=== PATIENT | male | born 1980 | race Caucasian/White ===

== ENCOUNTER 2018-04-18 14:27 | Observation (INO) ==
--- NOTE | 2018-04-18 15:31 | Emergency Department Note ---
Disposition Clinical Impression: Cholecystitis, acute Abdominal pain Qualifiers: Abdominal location: right upper quadrant Qualified Code(s): R10.11 - Right upper quadrant pain Disposition: Home, Self-Care General Adult HPI - General Chief complaint: ED Abdominal Pain Stated complaint: RUQ PAIN/'GALLBLADDER PROBLEMS' Time Seen by Provider: 04/18/18 15:07 Source: patient Limitations: no limitations Nursing Notes Reviewed: Yes Vital Signs Reviewed: Yes - History of Present Illness HPI Narrative: 37M with PMHx HTN presents with 2 weeks of RUQ pain. He went to [facility] 2 weeks ago and reports that they did a CT abd/pelvis and blood work-up on him, which were all unremarkable. Was given Zofran, dilaudid and discharged. Pain worsened over the last 2 weeks and patient decided to come to [facility]. Pain is constant, sharp, worse with movement, better with rest. 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 He had similar episode in November 04, 2018, and diagnosed with gallstones, treated symptomatically. Patient had another episode in December, did not pursue medical treatment. 2 weeks ago, he experienced more severe RUQ and went to [facility], where he obtained abodominal CT, blood work. Patient states that imaging and blood work were unremarkable, he received dilaudid and zofran, and was discharged home. However, RUQ pain worsened over the last 2 weeks, he decided to go to urgent care today and was recommended to come to [facility] for further work-up. Patient reports nausea and decreased PO intake. Last meal last night. RUQ pain is worse with greasy food. Denies CP, SOB , cough, diarrhea, vomiting, fever, chills. Pain is "not that bad", but patient is a security police officer and RUQ is interfering with his work. He denies smoking, alcohol, or illicit drug use. No further acute complaints. Pt Subjective Complaint: RUQ pain Pain Scale: 4 - Related Data Home Medications Medication Instructions Recorded Confirmed Lisinopril [Zestril] 10 mg PO DAILY 04/18/18 04/18/18 Pantoprazole Sodium 40 mg PO DAILY 04/18/18 04/18/18 Allergies Allergy/AdvReac Type Severity Reaction Status Date / Time codeine AdvReac See Verified 04/18/18 18:20 Comments Constitutional: Reports: as per HPI Past Medical History - Past Medical History Medical history: Reports: hypertension, other Psychiatric history: Reports: no psych history - Social History Smoking Status: Never smoker Smokeless Tobacco Status: No Alcohol use: Reports: none Drug use: Reports: none Physical Exam - General Limitations: no limitations General appearance: alert, in no apparent distress - Head Head exam: atraumatic, normocephalic, normal inspection - Eye Eye exam: Present: normal appearance, PERRL, EOMI - Expanded Eye Exam Pupils: Left: reactive - ENT ENT exam: normal exam, normal oropharynx, mucous membranes moist - Expanded ENT Exam External ear exam: Present: normal external inspection Mouth exam: Present: normal external inspection Teeth exam: Present: normal inspection Throat exam: Present: normal inspection - Neck Neck exam: Present: normal inspection, full ROM, trachea midline - Chest Chest inspection: Present: normal inspection, symmetric chest wall rise - Respiratory Respiratory exam: Present: normal lung sounds bilaterally - Cardiovascular Cardiovascular exam: Present: regular rate, normal rhythm, normal heart sounds - Abdominal Exam Abdominal exam: Present: soft, diminished bowel sounds, Davidson's sign. Absent: tenderness, distention, guarding, rebound, rigidity, Rovsing's sign, tenderness at McBurney's Point Abdominal tenderness: Present: RUQ, moderate - Extremities Exam Extremities exam: Present: normal inspection, full ROM. Absent: tenderness, pedal edema - Expanded Upper Extremity Exam Shoulder exam: Present: normal inspection, full ROM Arm exam: Present: normal inspection, full ROM Elbow exam: Present: normal inspection, full ROM Forearm/Wrist exam: Present: normal inspection, full ROM Hand exam: Present: normal inspection, full ROM Vascular exam: Normal: capillary refill, radial pulse - Expanded Lower Extremity Exam Hip/Pelvis exam: Present: normal inspection, full ROM Upper leg exam: Present: normal inspection, full ROM Knee exam: Present: normal inspection, full ROM Lower leg exam: Present: normal inspection, full ROM Ankle exam: Present: normal inspection, full ROM Foot/toe exam: Present: normal inspection, full ROM Neurovascular/Tendon exam: Absent: motor deficit, sensory deficit, tendon deficit - Back Exam Back exam: Present: normal inspection, full ROM. Absent: tenderness - Neurological Exam Neurological exam: Present: alert, oriented X3 - Expanded Neurological Exam Patient oriented to: Present: person, place, time Coma Scale Eye Opening: Spontaneous Coma Scale Motor Response: Obeys Commands Coma Scale Verbal Response: Oriented Coma Scale Total: 15 - Psychiatric Psychiatric exam: Present: normal affect, normal mood - Skin Skin exam: Present: warm, dry, intact, normal color Course Course Narrative: Patient is currently stable. His presentation of post-prandial worsening RUQ, nausea, +Davidson's sign correlates with acute cholecystitis, although he is afrebile. Obtain CBC, hepatic panel, BMP, RUQ ultrasound to rule out cholecystitis. - Reevaluation(s) Reevaluation #1: Holzher work-up obtained. Limited ultrasound demonstrated cholelithiasis without evidence of acute cholecystitis. negative CXR. CT abd/pelvis with contrast shows several tiny low-attenuation lesions left kidney. Probably due to benign cysts. Small ringlike sclerotic area involving left iliac bone. likely benign. Time: 16:00 Reevaluation #2: US gall bladder IMPRESSION: Cholelithiasis, including a gallstone within the gallbladder neck. There is mild wall thickening of 4 mm and possible trace pericholecystic fluid. Negative sonographic Davidson sign. Overall findings could represent mild cholecystitis in the proper clinical setting. Hepatic steatosis. Time: 17:30 Reevaluation #3: Patient expresses that he would like his gallbladder taken out leonie. Requests for us to consult surgery for possible cholecystectomy this weekend. Consulted Dr. Franco, who plans to assess patient later tonight. Time: 18:00 Additional Reevaluation(s): Dr. Franco has assessed patient and agrees to admit for surgery. Vital Signs Temperature 97.9 F 04/18/18 14:30 Pulse Rate 84 04/18/18 14:30 Respiratory Rate 16 04/18/18 14:30 Blood Pressure 126/75 04/18/18 14:30 O2 Sat by Pulse Oximetry 95 04/18/18 14:30 Temperature 97.9 F 04/18/18 15:35 Pulse Rate 84 04/18/18 15:35 Respiratory Rate 16 04/18/18 15:35 Blood Pressure 126/75 04/18/18 15:35 O2 Sat by Pulse Oximetry 95 04/18/18 15:35 Oxygen Delivery Oxygen Delivery Room Air Medical Decision Making - Lab Data Result diagrams: 04/18/18 15:14 04/18/18 15:14 Lab Results 04/18/18 04/18/18 04/18/18 Range/Units 15:14 15:14 15:32 WBC 14.0 H (4.3-11.1) K/mcL RBC 4.92 (4.19-5.50) M/mcL Hgb 14.9 (12.9-16.9) g/dL Hct 42.9 (37.5-50.1) % MCV 87.2 (83.0-100.0) fL MCH 30.3 (28.0-33.3) pg MCHC 34.7 (31.6-35.5) g/dL RDW 12.8 (11.5-14.5) % Plt Count 247 (140-400) K/mcL MPV 9.1 L (9.4-12.4) fL Sodium 136 (136-145) mEq/L Potassium 4.4 (3.5-5.1) mEq/L Chloride 104 (98-107) mEq/L Carbon Dioxide 24 (23-29) mEq/L BUN 13 (6-20) mg/dL Creatinine 1.01 (0.70-1.30) mg/dL Est GFR ( Amer) > 60 (> 60) Est GFR (Non-Af Amer) > 60 (> 60) BUN/Creatinine Ratio 13 (6-26) Glucose 138 H (70-105) mg/dL Calculated Osmolality 284 (280-300) Calcium 9.8 (8.6-10.3) mg/dL Total Bilirubin 0.7 (0.3-1.0) mg/dL Direct Bilirubin 0.1 (0.0-0.2) mg/dL Indirect Bilirubin 0.6 (0.0-1.2) mg/dL AST 18 (13-39) Units/L ALT 28 (7-52) Units/L Alkaline Phosphatase 84 (34-104) Units/L Serum Total Protein 7.7 (6.4-8.9) g/dL Albumin 4.8 (3.5-5.7) g/dL Globulin 2.9 (2.4-3.5) g/dL Albumin/Globulin Ratio 1.7 (1.1-2.2) Lipase 18 (11-82) Units/L Urine Color Yellow (Yellow) Urine Clarity Clear (Clear) Urine pH >=9.0 H (5.0-8.0) pH Units Ur Specific [place] 1.015 (1.010-1.025) Urine Protein 100 H (Neg-Trace) mg/dL Urine Glucose (UA) Normal (Normal) mg/dL Urine Ketones Trace H (Negative) mg/dL Urine Blood Negative (Negative) Urine Nitrite Negative (Negative) Urine Bilirubin Small H (Negative) Urine Urobilinogen Normal (Normal) mg/dL Ur Leukocyte Esterase Negative (Negative) Ur Squamous Epith Cells Few (None-Few) per lpf Urine Mucus Many H (Few)
[2018-04-18 15:34] LABS: Hematocrit 42.9 % (37.5-50.1); Hemoglobin 14.9 g/dL (12.9-16.9); Mean Corpuscular HGB Conc 34.7 g/dL (31.6-35.5); Mean Corpuscular Hemoglobin 30.3 pg (28.0-33.3); Mean Corpuscular Volume 87.2 fL (83.0-100.0); Mean Platelet Volume 9.1 fL (9.4-12.4); Platelet Count 247 K/mcL (140-400); Red Blood Count 4.92 M/mcL (4.19-5.50); Red Cell Distribution Width 12.8 % (11.5-14.5)
[2018-04-18 15:41] LABS: Bilirubin,Urine Small (Negative); Blood,Urine Negative (Negative); Clarity,Urine Clear (Clear); Color,Urine Yellow (Yellow); Glucose,Urine (UA) Normal (Normal); Ketones,Urine Trace mg/dL (Negative); Leukocyte Esterase,Urine Negative (Negative); Nitrite,Urine Negative (Negative); PH,Urine >=9.0 pH Units (5.0-8.0); Protein,Urine 100 mg/dL (Neg-Trace); Specific Gravity,Urine 1.015 (1.010-1.025); Urobilinogen,Urine Normal (Normal)
[2018-04-18 15:49] LABS: Mucus,Urine Many (Few); Squamous Epithelial Cell,Urine Few per lpf (None-Few)
--- NOTE | 2018-04-18 15:50 | Emergency Department Note ---
Disposition Clinical Impression: Abdominal pain Qualifiers: Abdominal location: right upper quadrant Qualified Code(s): R10.11 - Right upper quadrant pain Disposition: Still a Patient Forms: ED Satisfaction Letter, Work/School Release General Adult HPI - General Chief complaint: ED Abdominal Pain Stated complaint: RUQ PAIN/'GALLBLADDER PROBLEMS' Time Seen by Provider: 04/18/18 15:07 Source: patient, family Limitations: no limitations - History of Present Illness Pain Scale: 6 - Related Data Home Medications Medication Instructions Recorded Confirmed Lisinopril [Zestril] 10 mg PO DAILY 12/05/16 12/05/16 Previous Rx's Medication Instructions Recorded Clindamycin [Cleocin] 150 mg PO Q6HR #7 capsule 12/05/16 OxyCODONE Immed Rel [Roxicodone 5 5 - 10 mg PO Q6HR PRN #30 tablet 12/05/16 MG] Hyoscyamine SL [Levsin SL] 0.125 mg SL TID PRN #14 tab.subl 11/05/17 Ibuprofen 400 mg PO Q6HR PRN #20 tablet 11/05/17 Ondansetron ODT [Zofran ODT] 4 mg SL Q6HR PRN #10 tab.rapdis 11/05/17 Allergies Allergy/AdvReac Type Severity Reaction Status Date / Time codeine AdvReac See Verified 11/05/17 04:38 Comments Past Medical History - Past Medical History Medical history: Reports: hypertension, other Psychiatric history: Reports: no psych history - Social History Smoking Status: Never smoker Smokeless Tobacco Status: No Alcohol use: Reports: none Drug use: Reports: none Physical Exam - General Limitations: no limitations General appearance: alert, in no apparent distress Course - Reevaluation(s) Reevaluation #1: Attestation note I did independently examine and verified the physical examination findings evaluation workup and disposition of this patient. We had independent face-to- face examination and discussion. The patient was seen with the emergency medicine resident Dr. Adelso Oates I examined this patient and my medical decision-making was reviewed with the Resident Physician/AT RISK SPECIALIST/PA. I agree with the documented findings, disposition and treatment plan as described except to the extent set forth below. 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 Patient was seen at [facility] 2 weeks ago had a negative CT and normal lab work. Went to urgent care got IM Toradol and was sent here further evaluation patient does report quadrant tenderness guarding but no rebound. Patient will be getting a ultrasound of the lower quadrant and LFTs. Disposition pending. Patient was offered but declined analgesics. Time: 15:49 Vital Signs Temperature 97.9 F 04/18/18 14:30 Pulse Rate 84 04/18/18 14:30 Respiratory Rate 16 04/18/18 14:30 Blood Pressure 126/75 04/18/18 14:30 O2 Sat by Pulse Oximetry 95 04/18/18 14:30 Temperature 97.9 F 04/18/18 15:35 Pulse Rate 84 04/18/18 15:35 Respiratory Rate 16 04/18/18 15:35 Blood Pressure 126/75 04/18/18 15:35 O2 Sat by Pulse Oximetry 95 04/18/18 15:35 Oxygen Delivery Oxygen Delivery Room Air Medical Decision Making - Lab Data Result diagrams: 04/18/18 15:14 Lab Results 04/18/18 04/18/18 Range/Units 15:14 15:32 WBC 14.0 H (4.3-11.1) K/mcL RBC 4.92 (4.19-5.50) M/mcL Hgb 14.9 (12.9-16.9) g/dL Hct 42.9 (37.5-50.1) % MCV 87.2 (83.0-100.0) fL MCH 30.3 (28.0-33.3) pg MCHC 34.7 (31.6-35.5) g/dL RDW 12.8 (11.5-14.5) % Plt Count 247 (140-400) K/mcL MPV 9.1 L (9.4-12.4) fL Urine Color Yellow (Yellow) Urine Clarity Clear (Clear) Urine pH >=9.0 H (5.0-8.0) pH Units Ur Specific [place] 1.015 (1.010-1.025) Urine Protein 100 H (Neg-Trace) mg/dL Urine Glucose (UA) Normal (Normal) mg/dL Urine Ketones Trace H (Negative) mg/dL Urine Blood Negative (Negative) Urine Nitrite Negative (Negative) Urine Bilirubin Small H (Negative) Urine Urobilinogen Normal (Normal) mg/dL Ur Leukocyte Esterase Negative (Negative)
[2018-04-18 15:51] LABS: Alanine Aminotransferase 28 Units/L (7-52); Albumin 4.8 g/dL (3.5-5.7); Albumin/Globulin Ratio 1.7 (1.1-2.2); Alkaline Phosphatase 84 Units/L (34-104); Aspartate Amino Transferase 18 Units/L (13-39); BUN/Creatinine Ratio 13 (6-26); Bilirubin,Direct 0.1 mg/dL (0.0-0.2); Bilirubin,Indirect 0.6 mg/dL (0.0-1.2); Bilirubin,Total 0.7 mg/dL (0.3-1.0); Blood Urea Nitrogen 13 mg/dL (6-20); Calcium 9.8 mg/dL (8.6-10.3); Carbon Dioxide 24 mEq/L (23-29); Chloride 104 mEq/L (98-107); Globulin 2.9 g/dL (2.4-3.5); Glucose 138 mg/dL (70-105); Lipase 18 Units/L (11-82); Osmolality,Calculated 284 (280-300); Potassium 4.4 mEq/L (3.5-5.1); Sodium 136 mEq/L (136-145); Total Protein 7.7 g/dL (6.4-8.9); eGFR For African Americans > 60 (> 60); eGFR For Non-African Americans > 60 (> 60)
--- NOTE | 2018-04-18 18:27 | General Surg History&Physical ---
Date of Encounter: 04/18/18 Time of Encounter: 18:25 Assessment and Plan (1) Acute cholecystitis Current Visit: Yes Status: Acute The assessment and plan as outlined above was discussed with the patient and/or family members who expressed understanding and agreement. All questions were answered. I splayed to the patient that I personally reviewed the laboratory studies as well as a gallbladder ultrasound report and study. He does have evidence of acute cholecystitis and I think it would be appropriate to admit him to the hospital, start IV fluids and IV antibiotics, and reassess him in the morning to determine whether or not it would be appropriate to proceed with a laparoscopic cholecystectomy. The patient agrees with the above History of Present Illness Chief complaint: Right upper abdominal pain HPI: Mr. Mei is a 37 year old male with a past history significant for hypertension who states that Saturday of this week he started having right upper quadrant abdominal pain felt like a punch to the side. The pain has been progressively worse and because of the worsening symptoms he presented himself to the [facility] today for further evaluation. He states that last December he started having episodic abdominal pain that was in the upright abdominal/epigastric region that wrapped around his abdomen in a bandlike fashion radiated to the back. He had multiple episodes and the symptoms will last for about 2-3 hours. He states that it felt like he had the "wind knocked out of him" when he had the pain. 2 weeks ago he had worsening symptoms that required him to go to [facility] and Protonix. He states that the Protonix was given an he started to cover that the pain then started to migrate down to the epigastric area and to the right upper quadrant region and became the type pain that is currently experiencing. He did have previous episodes of nausea vomiting but no current nausea or vomiting. He states that he has had diarrhea since early part of this week. No rectal bleeding is noted. Past Med Surg Social Fam HX - Past Medical History Medical history: hypertension, other Additional medical history: GALLSTONES Psychiatric history: no psych history - Past Surgical History Surgical History: other (Left shoulder surgery) - Social History Smoking Status: Never smoker Smokeless Tobacco Status: No Alcohol use: none Drug use: none Medications and Allergies Lisinopril [Zestril] 10 mg PO DAILY 04/18/18 [History] Pantoprazole Sodium 40 mg PO DAILY 04/18/18 [History] 3 Allergy/AdvReac Type Severity Reaction Status Date / Time codeine AdvReac See Verified 04/18/18 18:20 Comments Review of Systems All systems PM: reviewed and no additional remarkable complaints except as stated All systems PM: The remainder of the systems were reviewed and are negative General Surgery Exam Initial Vital Signs Temp Pulse Resp BP Pulse Ox 97.9 F 84 16 126/75 95 04/18/18 14:30 04/18/18 14:30 04/18/18 14:30 04/18/18 14:30 04/18/18 14:30 - General physical appearance well nourished, no distress - Respiratory normal expansion, normal respiratory effort, clear to auscultation - Cardiovascular Cardiovascular exam: Present: RRR, no murmurs/rubs/gallops - Abdomen Abdomen general surgery: Present: bowel sounds present, soft, tender (Right upper abdominal pain to palpation. Epigastric pain) - Neurologic Present: CN 2-12 grossly intact - Musculoskeletal Present: other (No clubbing, cyanosis, or edema) - Psychiatric Psychiatric general surgery: Present: A&Ox3, oriented to person, oriented to place, oriented to time Results - Labs 04/18/18 15:14 04/18/18 15:14 Abnormal lab results WBC 14.0 K/mcL (4.3-11.1) H 04/18/18 15:14 MPV 9.1 fL (9.4-12.4) L 04/18/18 15:14 Glucose 138 mg/dL (70-105) H 04/18/18 15:14 Urine pH >=9.0 pH Units (5.0-8.0) H 04/18/18 15:32 Urine Protein 100 mg/dL (Neg-Trace) H 04/18/18 15:32 Urine Ketones Trace mg/dL (Negative) H 04/18/18 15:32 Urine Bilirubin Small (Negative) H 04/18/18 15:32 Urine Mucus Many (Few) H 04/18/18 15:32 All other labs normal. - Imaging US - abdomen: report reviewed, image reviewed (Evidence of trace fluid around the gallbladder with signs of cholecystitis and cholelithiasis.)
[2018-04-18] MEDS ORDERED: *HR* OxyCODONE/APAP 7.5/325 TABLET PO PRN (19:04)
[2018-04-18] MEDS: 0.9 % Sodium Chloride 1,000 ML IVC SCH (20:05)
[2018-04-18] MEDS: Piperacillin/Tazobactam 3.375 GM in 0.9 % Sodium Chloride Mini Bag 100 ML IVPB SCH (23:36)
[2018-04-18] MEDS: Ketorolac 30 MG/ML VIAL IVP SCH (23:37)
[2018-04-19] MEDS ORDERED: Ketorolac 30 MG/ML VIAL IM SCH
[2018-04-19] MEDS: Ketorolac 30 MG/ML VIAL IVP SCH ×2 (05:23→13:15)
[2018-04-19 06:19] LABS: Basophils % 0.1 %; Hematocrit 40.2 % (37.5-50.1); Hemoglobin 13.9 g/dL (12.9-16.9); Immature Granulocytes % 0.5 % (0-4); Lymphocytes % 6.6 %; Mean Corpuscular HGB Conc 34.6 g/dL (31.6-35.5); Mean Corpuscular Hemoglobin 30.4 pg (28.0-33.3); Mean Platelet Volume 8.8 fL (9.4-12.4); Monocytes # 0.4 K/mcL (0.0-1.3); Monocytes % 2.2 %; Neutrophils # 14.3 K/mcL (1.6-8.9); Platelet Count 237 K/mcL (140-400); Red Blood Count 4.57 M/mcL (4.19-5.50); Red Cell Distribution Width 12.7 % (11.5-14.5); Segmented Neutrophils % 90.6 %
--- NOTE | 2018-04-19 07:13 | General Surgery Progress Note ---
Date of Encounter: 04/19/18 Time of Encounter: 07:12 - Assessment and Plan (1) Acute cholecystitis Current Visit: Yes Status: Acute We will go ahead and proceed with a laproscopic cholecystectomy today. Risks and benefits discussed with the patient and he agrees to the above plan. Subjective Patient reports: no new complaints (Patient denies any current abdominal pain.) Objective Vital Signs - Last 8 Hours Temp Pulse Resp BP Pulse Ox 04/19/18 04:35 97.9 F 58 16 110/57 98 Intake and Output 04/18/18 04/18/18 04/19/18 15:59 23:59 07:59 Intake Total 840 / 840 100 / 100 Balance 840 / 840 100 / 100 Intake: IV Fluids 100 / 100 Zosyn 3.375 GM In 0.9 % Sodium 100 / 100 Chloride (Mini-Bag +) 100 ML @ 25 mls/hr IVPB Q8HR REED Rx#: [id number] Oral 840 / 840 Other: # Voids 1 - General physical appearance well nourished, no distress - Abdomen Abdomen: Present: bowel sounds present, soft, non tender - Labs 04/19/18 05:55 04/18/18 15:14 Consult Discharge Plan - Plan Referrals: Sheyla Lees, JL [Primary Care Provider] -
[2018-04-19] MEDS: 0.9 % Sodium Chloride 1,000 ML IVC SCH (07:30)
[2018-04-19] MEDS: Piperacillin/Tazobactam 3.375 GM in 0.9 % Sodium Chloride Mini Bag 100 ML IVPB SCH (07:30)
[2018-04-19] MEDS ORDERED: Pantoprazole 40 MG VIAL IVP SCH (09:00)
--- NOTE | 2018-04-19 12:41 | Anesthesia Evaluation PreOp ---
Date of Encounter: 04/19/18 Time of Encounter: 12:39 - Past History Planned Operation: Lap. Simran. 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 shoulder) Alcohol Use: none Drug use: none Medications and Allergies Lisinopril [Zestril] 10 mg PO DAILY 04/18/18 [History] Pantoprazole Sodium 40 mg PO DAILY 04/18/18 [History] 3 Allergy/AdvReac Type Severity Reaction Status Date / Time codeine AdvReac See Verified 04/18/18 18:20 Comments - Meds/Allergy Pre-op Review Medications Reviewed: Yes Allergies Reviewed: Yes Beta Blockers on Current Med List: No Anesthesia Results - Labs 04/19/18 05:55 04/18/18 15:14 - Imaging EKG: report reviewed (SR) Anesthesia Exam Vital Signs/O2 Sat, Most Current Temp Pulse Resp BP Pulse Ox 98.0 F 66 14 117/68 97 04/19/18 10:53 04/19/18 10:53 04/19/18 10:53 04/19/18 10:53 04/19/18 10:53 NPO (# of Hours): > 8 hrs Pain Scale: 0 Pain Scale Used: Numeric (1 - 10) - HEENT Pupil (Motor): Pupils equal, EOMI Mallampati: III Teeth: Normal Oral Opening: Greater than 3 - WORKDAY SENIOR ASSOCIATE LOC: Oriented WORKDAY SENIOR ASSOCIATE Motor: Normal RUE, Normal LUE, Normal RLE, Normal LLE, Normal Face WORKDAY SENIOR ASSOCIATE Sensory: Normal: RUE, LUE, RLE, LLE, Face - Cardiac Rhythm: Regular Murmur: None JVD: No Carotid Bruit: No - Pulmonary Breath Sounds: bilateral Clear Respiratory Effort: Symmetrical Anesthesia Assess/Plan ASA Score: 2 Modified [place] Scale for Level of Consciousness: Cooperative, oriented, and tranquil Anesthetic Plan: General Autologous Blood: Yes Monitoring Plan: Standard Monitors Recovery Plan: PACU
[2018-04-19] MEDS ORDERED: *HR* Succinylcholine 200 MG/10 ML VIAL IVP ONE (13:19)
[2018-04-19] MEDS ORDERED: Dexamethasone 4 MG/ML VIAL ONE (13:19)
[2018-04-19] MEDS ORDERED: Ondansetron 4 MG/2 ML VIAL ONE (13:19)
[2018-04-19] MEDS ORDERED: Lidocaine -MPF 2% 2 ML VIAL ONE (13:19)
[2018-04-19] MEDS ORDERED: *HR* Propofol 200 MG/20 ML VIAL IVP ONE (13:19)
[2018-04-19] MEDS ORDERED: *HR* Rocuronium Bromide 50 MG/5 ML VIAL ONE (13:19)
[2018-04-19] MEDS ORDERED: *HR* FentaNYL (PF) 100 MCG/2 ML VIAL ONE ×2 (13:19→14:11)
[2018-04-19] MEDS ORDERED: *HR* Midazolam HCl 2 MG/2 ML VIAL ONE (13:20)
[2018-04-19] MEDS ORDERED: MORPHINE SUL Oral CONC 10 MG/0.5 ML ORAL.SYG SL PRN ×2 (14:06→17:14)
[2018-04-19] MEDS ORDERED: *HR* Promethazine 25 MG/ML VIAL IVP PRN (14:06)
[2018-04-19] MEDS ORDERED: *HR* Labetalol 100 MG/20 ML MDV IVP PRN (14:06)
[2018-04-19] MEDS ORDERED: Ondansetron 4 MG/2 ML VIAL IVP ONE (14:06)
[2018-04-19] MEDS ORDERED: *HR* OxyCODONE Immed Rel 5 MG TABLET PO PRN (14:06)
--- NOTE | 2018-04-19 14:38 | Operative Note ---
Date of procedure: 04/19/18 Pre-op diagnosis: Acute cholecystitis Post-op diagnosis: same Procedure: Laparoscopic cholecystectomy Anesthesia: SHARONA Surgeon: Roc Franco Was there an content assistant present: No Estimated blood loss (cc): 20 Specimen: gallbladder and contents Condition: stable Disposition: PACU Procedure in Detail: Date of surgery: 04/19/18 After properly identifying the patient, the patient was brought to the operating room and placed in the supine position. After proper IV sedation was achieved followed by general endotracheal intubation, the patient's abdomen was prepped and draped in a normal sterile fashion. A timeout was performed noting the patient's name and type of procedure to be performed. Half percent Marcaine was used to infiltrate the epidermal and dermal layer in the supraumbilical region. An 11 blade scalpel was used to make an incision in this area down to level of the rectus fascia. The rectus fascia was incised and the abdomen was entered and a 12 mm port was placed to the incision. A laparoscopic camera was placed through the port which showed no injury to the intra-abdominal organs upon entry. The abdomen was insufflated with carbon dioxide and is subxiphoid 5 mm port and a right subcostal margin 5 mm port were then placed under direct camera visualization after these areas were infiltrated with half percent Marcaine solution. The gallbladder was noted to be distended and erythematous with evidence exudate consistent with acute cholecystitis. The decision was made to go ahead and perform a needle decompression laparoscopically which allow for removal of approximately 60 milliliters of bilious fluid. This allowed for grasping of the gallbladder retraction superiorly. The inflamed peritoneal tissue overlying the cystic duct and cystic artery were bluntly dissected away with a [place] dissector as well as carefully cauterized Bovie cauterization. This allowed for identification of the cystic duct which was laparoscopically clipped and then incised with laparoscopic scissors. The cystic artery was noted to be included in this area/included in the clip. The gallbladder was carefully dissected away from the gallbladder fossa with Bovie cauterization while Bovie cauterization was used to maintain hemostasis. Once the gallbladder was dissected free it was removed from the abdomen via an Endobag. Reinspection of the right upper quadrant demonstrated maintenance of hemostasis and a right upper quadrant was copiously irrigated with normal saline solution. The areas cystic duct and cystic artery were identified and no evidence of was noted in this region. All ports are then removed from the abdomen after the abdomen was desufflated. The rectus fascia for the super umbilical incision was reapproximated with a [id number] 0 Vicryl suture. The subcutaneous tissue was reapproximated with an interrupted 3-0 Vicryl suture and the epidermal and dermal layers for the remaining incisions were closed with 4-0 Monocryl sutures. Needle, sponge, and instrument counts were correct 2 and the incisions were covered with Steri- Strips and Band-Aids. The patient was aroused IV sedation, extubated in the operating room without complication, and transported to the recovery room in stable condition.
--- NOTE | 2018-04-19 14:58 | Discharge Summary ---
- NOTES TO OUTPATIENT PROVIDER Notes to Outpatient Provider: s/p laparoscopic cholecystectomy. Augmentin x3 days Orders not resulted at time of discharge: Pending orders 04/19/18 14:12 Surgical Pathology [PTH] Routine Date of Encounter: 04/19/18 Time of Encounter: 15:10 - Discharge Diagnosis (1) Acute cholecystitis Priority: Primary Status: Acute General Surgery Exam Initial Vital Signs Temp Pulse Resp BP Pulse Ox 97.9 F 84 16 126/75 95 04/18/18 14:30 04/18/18 14:30 04/18/18 14:30 04/18/18 14:30 04/18/18 14:30 - Hospital Course Hospital course: Mr. Mei is a 37 year old male - Time Spent with Patient Total time spent providing and/or coordinating discharge services: - Discharge Medications Prescriptions: Ondansetron ODT [Zofran ODT] 4 mg SL Q6HR #15 tab.rapdis OxyCODONE/APAP 7.5/325 [Percocet 7.5/325 MG] 1 each PO Q6HR PRN 7 Days #26 tablet PRN Reason: Pain Amoxicillin/Clavulanate [Augmentin] 875 mg PO BIDWM #9 tablet Docusate Sodium [Colace] 100 mg PO BID #30 capsule Ibuprofen 800 mg PO Q8H #42 tablet Home Medications: Lisinopril [Zestril] 10 mg PO DAILY 04/18/18 [History] Pantoprazole Sodium 40 mg PO DAILY 04/18/18 [History] Amoxicillin/Clavulanate [Augmentin] 875 mg PO BIDWM #9 tablet 04/19/18 [Rx] Docusate Sodium [Colace] 100 mg PO BID #30 capsule 04/19/18 [Rx] Ibuprofen 800 mg PO Q8H #42 tablet 04/19/18 [Rx] Ondansetron ODT [Zofran ODT] 4 mg SL Q6HR #15 tab.rapdis 04/19/18 [Rx] OxyCODONE/APAP 7.5/325 [Percocet 7.5/325 MG] 1 each PO Q6HR PRN 7 Days #26 tablet 04/19/18 [Rx] Allergies/Adverse Reactions: 3 Allergy/AdvReac Type Severity Reaction Status Date / Time codeine AdvReac See Verified 04/18/18 18:20 Comments Date of admission: 04/18/18 18:22 Primary care physician: Sheyla Lees Discharging clinician: Tai Baez Anticipated date of discharge: 04/19/18 Procedures and tests throughout hospitalization: s/p laparoscopic cholecystectomy Labs on day of discharge: Labs from last 24 hours 04/19/18 04/19/18 12:46 05:55 WBC 15.8 H RBC 4.57 Hgb 13.9 Hct 40.2 MCV 88.0 MCH 30.4 MCHC 34.6 RDW 12.7 Plt Count 237 MPV 8.8 L Immature Gran % 0.5 Seg Neutrophils % 90.6 Lymphocytes % 6.6 Monocytes % 2.2 Eosinophils % 0.0 Basophils % 0.1 Neutrophils # 14.3 H Lymphocytes # 1.0 Monocytes # 0.4 Eosinophils # 0.0 Basophils # 0.0 POC Glucose 142 H - Patient Status Disposition: Home, Self-Care Condition: Fair Functional capacity at discharge: independent ambulation Overall status at discharge: patient is progressing back to baseline - Discharge Instructions Follow Up With: Sheyla Lees, [employer] [Primary Care Provider] - Additional Instructions: General Surgery Discharge Instructions: 1. No pushing, pulling, or lifting greater than 15 pounds for 2 weeks 2. You may remove band-aids on Saturday and shower on Saturday 3. You may return to driving when you are off narcotics and are safe to react in a car 4. Take ibuprofen every 8 hours for discomfort. If this does not relieve your pain you may take Percocet. Take as prescribed. Do not take more than prescribed. Do not drink alcohol while on narcotics 5. Take stool softeners (Colace) or Miralax while on narcotics 6. Report any fevers greater than 100.5 F, increased abdominal discomfort, drainage that looks like pus, increased redness or pain at the surgical site, or any vomiting 7. Report any pain to calves, shortness of breath, or rapid heartbeat 8. Follow-up in the office as directed 9. Take your antibiotics as prescribed - Diet and Activity Activity: increase activity as tolerated Diet: advance to your usual diet
--- NOTE | 2018-04-19 15:35 | Anesthesia Evaluation Post Op ---
Date of Encounter: 04/19/18 Time of Encounter: 15:34 - Vital Signs Vital Signs: Vital Signs/O2 Sat, Most Current Temp Pulse Resp BP Pulse Ox 97.7 F 54 14 119/74 96 04/19/18 14:46 04/19/18 15:16 04/19/18 15:16 04/19/18 15:06 04/19/18 15:16 - Lungs Lungs: Clear Ascult./Percussion - Airway Airway: Non-obstructed - Cardiovascular Regular Rate - Mental Status Mental Status: Alert & Oriented, Answers Appropriately - Pain Pain Scale: 0 Pain Scale used: Numeric (1 - 10) - Nausea Vomiting Nausea Vomiting: Not Present - Hydration Hydration: Tolerates oral liquids, Has not voided - Discharge PostOp Status: Transfer Patient to floor
[2018-04-19] MEDS ORDERED: *HR* OxyCODONE/APAP 7.5/325 TABLET PO PRN (17:14)
[2018-04-19] MEDS ORDERED: 0.9 % Sodium Chloride 1,000 ML IVC SCH (17:14)
[2018-04-19] MEDS ORDERED: Ketorolac 30 MG/ML VIAL IVP SCH (18:00)
[2018-04-19 19:30] VITALS: BP 143/65
[2018-04-20] MEDS ORDERED: Piperacillin/Tazobactam 3.375 GM in 0.9 % Sodium Chloride Mini Bag 100 ML IVPB SCH
[2018-04-20] MEDS ORDERED: Pantoprazole 40 MG VIAL IVP SCH (09:00)
== END 2018-04-19 21:14 | disposition home or self-care (01) ==
LOC: EMEROO 14:27 → 3ANU 14:27
PROVIDERS: ADMIT Surgery; ATTEND Surgery